=== PATIENT | female | born 1965 | race Caucasian/White ===

== ENCOUNTER 2021-11-29 08:21 | Outpatient (CLI) | payer BC, SELFPAY ==
--- NOTE | 2021-11-29 09:33 | EST_ITS ---
Patient Info Name: Debora Garza Age: 56 years : 1965 Gender: Female Ht: 66 in Wt: 151 lbs BSA: 1.79 m2 HR: 69 bpm BP: 110 / 84 mmHg Heart Rhythm: Sinus Rhythm Exam Date: 11/29/2021 9:47 AM Exam Location: [facility] Patient Status: Outpatient Admit Date: 11/29/2021 Staff Ordering Physician: Juju Alford Attending Provider: Juju Alford Exercise Technologist: Jenny Lopez CT Nurse: KALYANI CUMMINGS Exam Type: CA stress test treadmill Study Info Indications I10 - Essential (primary) hypertension 125.2 - Old myocardial Infarction An exercise stress test was performed. Summary 1. No abnormal ST/T wave changes with exercise although significant baseline artifact reduces sensitivity specificity for myocardial ischemia. 2. No arrhythmias were observed during the examination. 3. Exercise capacity very good at >10 METS. 4. Symptom limited exercise test. 5. Normal blood pressure response. 6. Normal stress test and stress ECG with near maximal exercise. 7. No chest discomfort with stress test. Protocol: Oliverio Stress ECG Details Stage: REST Duration (min): 5 min : 15 sec Speed (mph): 0.0 Grade (%): 0 HR (bpm): 66 SBP (mmHg): 189 DBP (mmHg): 88 METS: --- Stage: REST Duration (min): 12 min : 0 sec Speed (mph): 0.0 Grade (%): 0 HR (bpm): 74 SBP (mmHg): 189 DBP (mmHg): 88 METS: --- Stage: STAGE 1 Duration (min): 1 min : 0 sec Speed (mph): 1.7 Grade (%): 10 HR (bpm): 92 SBP (mmHg): 189 DBP (mmHg): 88 METS: --- Stage: STAGE 1 Duration (min): 2 min : 0 sec Speed (mph): 1.7 Grade (%): 10 HR (bpm): 107 SBP (mmHg): 189 DBP (mmHg): 88 METS: --- Stage: STAGE 1 Duration (min): 3 min : 0 sec Speed (mph): 1.7 Grade (%): 10 HR (bpm): 114 SBP (mmHg): 189 DBP (mmHg): 88 METS: --- Stage: STAGE 2 Duration (min): 1 min : 0 sec Speed (mph): 2.5 Grade (%): 12 HR (bpm): 117 SBP (mmHg): 189 DBP (mmHg): 88 METS: --- Stage: STAGE 2 Duration (min): 2 min : 0 sec Speed (mph): 2.5 Grade (%): 12 HR (bpm): 120 SBP (mmHg): 189 DBP (mmHg): 88 METS: --- Stage: STAGE 2 Duration (min): 3 min : 0 sec Speed (mph): 2.5 Grade (%): 12 HR (bpm): 123 SBP (mmHg): 189 DBP (mmHg): 88 METS: --- Stage: STAGE 3 Duration (min): 1 min : 0 sec Speed (mph): 3.4 Grade (%): 14 HR (bpm): 130 SBP (mmHg): 189 DBP (mmHg): 88 METS: --- Stage: STAGE 3 Duration (min): 1 min : 50 sec Speed (mph): 3.4 Grade (%): 14 HR (bpm): 136 SBP (mmHg): 189 DBP (mmHg): 88 METS: --- Stage: RECOVERY Duration (min): 0 min : 9 sec Speed (mph): 1.5 Grade (%): 0 HR (bpm): 135 SBP (mmHg): 189 DBP (mmHg): 88 METS: --- Stage: RECOVERY Duration (min): 1 min : 9 sec Speed (mph): 0.0 Grade (%)
== END 2021-11-29 08:22 | disposition home or self-care (01) ==
PROVIDERS: PCP Family Medicine; Visit Provider Nurse Practitioner Family
DX: I21.9 Acute myocardial infarction, unspecified (principal); E78.5 Hyperlipidemia, unspecified; I10 Essential (primary) hypertension
CPT/HCPCS: 93017

== ENCOUNTER → 2023-01-24 14:40 | Outpatient (CLI) | payer BC, SELFPAY ==
--- NOTE | ~2023-01-24 | MM_ITS ---
EXAMINATION: MM screening [facility] BI w ric HISTORY: Screening mammogram TECHNIQUE: Craniocaudal and mediolateral oblique 3-D tomosynthesis images were obtained and synthetic 2-D images were generated. CAD analysis was submitted and interpreted. COMPARISON: No prior mammogram is available for comparison at this institution. BREAST PARENCHYMAL COMPOSITION: There are scattered areas of fibroglandular density. FINDINGS: RIGHT BREAST: No suspicious mass, calcification, or architectural distortion are identified to sugges t malignancy. LEFT BREAST: There is possible architectural distortion in the subareolar aspect of the left breast. IMPRESSION: 1. Possible left breast architectural distortion which may represent the patient's baseline however n o comparison is currently available. 2. Comparison with prior mammograms is necessary. BI-RADS Category 0: Incomplete: Needs comparison with prior mammograms. Reviewed, dictated and finalized at location A. IMPRESSION: 1. Possible left breast architectural distortion which may represent the patien t's baseline however no comparison is currently available. 2. Comparison with prior mammograms is necessary. BI-RADS Category 0: Incomplete: Needs comparison with prior mammograms.
== END ==
PROVIDERS: PCP Nurse Practitioner Family; Visit Provider Nurse Practitioner Family
DX: Z12.31 Encounter for screening mammogram for malignant neoplasm of breast (principal); R92.8 Other abnormal and inconclusive findings on diagnostic imaging of breast
CPT/HCPCS: 77063; 77067

== ENCOUNTER 2024-04-09 13:05 | Outpatient (CLI) | payer BC, SELFPAY ==
--- NOTE | ~2024-04-09 | MM_ITS ---
EXAMINATION: MM screening [facility] BI w ric HISTORY: Screening mammogram TECHNIQUE: Craniocaudal and mediolateral oblique 3-D tomosynthesis images were obtained and synthetic 2-D images were generated. CAD analysis was submitted and interpreted. COMPARISON: 01/24/2023, 06/22/2020, 06/10/2019 BREAST PARENCHYMAL COMPOSITION:Not Dense. There are scattered areas of fibroglandular density. FINDINGS: No suspicious mass, calcification, or architectural distortion are identified in either glenda ast to suggest malignancy. There has been no suspicious interval change. IMPRESSION: No mammographic evidence of malignancy. Recommend routine screening mammography in one year. BI-RADS Category 1: Negative Reviewed, dictated and finalized at location .
== END 2024-04-09 13:06 | disposition home or self-care (01) ==
LOC: MICIMG 13:05
PROVIDERS: PCP Family Medicine; Visit Provider Nurse Practitioner Family
DX: Z12.31 Encounter for screening mammogram for malignant neoplasm of breast (principal)
CPT/HCPCS: 77063; 77067